=== PATIENT | male | born 1935 | race Caucasian/White ===

== ENCOUNTER 2016-12-09 05:52 | Day surgery (SDC) | payer MEDICARE, OTHER ==
[2016-12-08 10:25] LABS: HEMATOCRIT 42.3 % (42.0-54.0); HEMOGLOBIN 14.3 g/dL (13.5-17.5); MCH 32.1 pg (26.0-34.0); MCHC 33.8 g/dL (31.0-37.0); MCV 95.1 fL (80.0-100.0); MEAN PLATELET VOLUME 10.4 fL (7.4-10.4); RBC 4.45 10x6/uL (4.20-6.10); RDW 13.5 % (11.5-14.5); WBC 4.5 10x3/uL (4.8-10.8)
[2016-12-08 11:02] LABS: APTT 40.2 SECONDS (22.8-39.4); INR 1.62 (0.85-1.17); PROTIME 19.2 SECONDS (11.6-15.0)
[~2016-12-09] VITALS: Ht 182.9 cm; Wt 95.3 kg
[~2016-12-09 05:52] MED LIST: COUMADIN1 MG; MULTIPLE VITAMI1 TA1 PO
[2016-12-09 06:53] VITALS: BP 149/82; Ht 182.9 cm; Wt 95.3 kg
--- NOTE | 2016-12-10 09:14 | OP ---
PATIENT NAME: STEPHANE ADAM MEDICAL RECORD: [id number] :33 LOCATION:[facility] ADMISSION DATE: SURGEON: KAMARI HARLEY MD DATE OF OPERATION: 12/09/2016 SURGEON: Kamari Harley MD. ANESTHESIA: General anesthesia by Bruce Israel CRNA. PREOPERATIVE DIAGNOSIS: Obstructive benign prostatic hypertrophy. POSTOPERATIVE DIAGNOSIS: Obstructive benign prostatic hypertrophy. FINDINGS: Obstructive BPH with bilateral lateral lobe hyperplasia and a tight bladder neck. Heavily trabeculated bladder with cellules. Single ureteral orifices bilaterally. No bladder tumors. PROCEDURES: Cystoscopy, GreenLight laser transurethral resection of the prostate, total energy 64,652 joules, laser on time 13 minutes and 41 seconds, power 80 patel. COMPLICATIONS: Loss None. CLINICAL HISTORY: This is an 81-year-old male, who has a longstanding history of BPH with urinary frequency, urgency and slow urinary flow. His physicians have tried treating him with medications for BPH, but he has not been able to tolerate these medications as they affect his blood pressure. Even finasteride affected his blood pressure. He comes now to have a GreenLight laser surgery done on the prostate. 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 His Coumadin was held at least 5 days prior to the procedure. His INR today is still elevated at 1.6. However, as the laser will burn the tissue as it works, I am not worried about blood loss. The patient agreed to go ahead. He was given Ancef 2 grams IV assistant corporation counsel to the OR. HE IS ALLERGIC TO ASPIRIN AND CODEINE. DESCRIPTION OF PROCEDURE: The patient was given induction of general anesthesia. He was placed in the dorsal lithotomy position and prepped and draped. The laser resectoscope, 23-Macedonian in circumference, was placed into the urethra. The penile urethra was nonobstructive and there were no strictures. The verumontanum was very clearly seen. Obstructive bilateral lateral lobes were noted. Bladder neck was also vascular and somewhat elevated. Going into the bladder, the bladder was heavily trabeculated. The ureteral orifices are single on each side. They are located quite a distance away from the bladder neck, which is advantageous for us. No bladder tumors were seen. Resection was confined to the area between the bladder neck and just proximal to the verumontanum. Starting with 80 patel, we initially carved out a channel in the middle of the prostate through the bladder neck and down to just proximal to the verumontanum. The prostate tissue absorbed the laser energy very well and vaporized very quickly. The left lateral lobe was then taken down to the capsule as evidenced by unroofing of prostatic stones during the procedure. We then took down the right lateral lobe until we unroofed prostatic stones. Finally, the ridge of tissue in the very posterior portion of the prostate was taken down just to the point where it was proximal to the verumontanum. At the end of procedure, the patient had a wide open channel from the bladder neck all the way through to the urinary sphincter level. The verumontanum was still OPERATIVE REPORT [id number] STEPHANE ADAM. There was no bleeding at all during this case. The laser was then turned off and the scope was removed. A 20-Macedonian 3-way Trivedi catheter was inserted into the bladder. Sterile water 30 cc was used to inflate the Trivedi catheter balloon. The patient will be going home with a catheter to bag drainage. A catheter plug is placed into the inflow port to cap it off. The patient will go home today with the bag and he will come and see me in the office tomorrow to have the Trivedi catheter removed for a voiding trial. TRANSINT:[id number] Voice Confirmation ID: [id number] DOCUMENT ID: [id number] KAMARI HARLEY MD at 0914 CC: [id number] DICTATION DATE: 12/09/16 1014 [employer] MANAGER: 12/09/16 1433 [facility] 12/09/16 [facility] [address] [place] [address]
== END 2016-12-09 12:15 | disposition home or self-care (01) ==
LOC: D.OPS 05:52 → D.PAN 08:15 → D.OPS 08:15 → D.PAN 08:30 → D.OPS 08:30 → D.PAN 09:00 → D.OPS 11:05
PROVIDERS: Anesthesiology
DX: N40.0 Benign prostatic hyperplasia without lower urinary tract symptoms (principal); Z01.812 Encounter for preprocedural laboratory examination; Z79.01 Long term (current) use of anticoagulants; R35.0 Frequency of micturition

== ENCOUNTER → 2017-01-14 18:53 | Outpatient (CLI) | payer MEDICARE, OTHER ==
[2016-12-09 06:53] VITALS: BMI 28.5
== END | disposition home or self-care (01) ==
LOC: D.LABREF 18:53
DX: N39.0 Urinary tract infection, site not specified (principal)

== ENCOUNTER → 2017-01-28 19:18 | Outpatient (CLI) | payer MEDICARE, OTHER ==
[2016-12-09 06:53] VITALS: BMI 28.5
== END | disposition home or self-care (01) ==
LOC: D.LABREF 19:18
DX: N39.0 Urinary tract infection, site not specified (principal)

== ENCOUNTER → 2017-02-15 15:03 | Outpatient (CLI) | payer MEDICARE, OTHER ==
[2016-12-09 06:53] VITALS: BMI 28.5
== END | disposition home or self-care (01) ==
LOC: D.LABREF 15:03
DX: N39.0 Urinary tract infection, site not specified (principal)

== ENCOUNTER → 2017-02-25 18:45 | Outpatient (CLI) | payer MEDICARE, OTHER ==
[2016-12-09 06:53] VITALS: BMI 28.5
== END | disposition home or self-care (01) ==
LOC: D.LABREF 18:45
DX: N39.0 Urinary tract infection, site not specified (principal)

== ENCOUNTER → 2017-03-08 17:52 | Outpatient (CLI) | payer MEDICARE, OTHER ==
[2016-12-09 06:53] VITALS: BMI 28.5
== END | disposition home or self-care (01) ==
LOC: D.LABREF 17:52
DX: N39.0 Urinary tract infection, site not specified (principal)